=== PATIENT | female | born 1945 | race Caucasian/White ===

== ENCOUNTER 2016-08-05 23:23 | Inpatient (IN) | payer MEDICARE ==
--- NOTE | ~2016-08-05 | CN ---
Consultation Report [facility] [address] [place]. [address] NAME: DAIN ALMONTE : [birth year] STATUS : ADM IN [facility]#: [id number] AGE: 70 ADM/REG DATE : 08/06/16 MR#: [id number] REPORT SERV DATE: 08/08/16 DICTATED BY: BEV MURRAY DATE: 08/07/16 REPORT STATUS : Draft TRANSCRIBED BY: MODCarlee DATE: 08/07/16 CONSULTATION DATE OF CONSULTATION: 08/07/2016 REASON FOR CONSULTATION: Hydronephrosis. HISTORY OF PRESENT ILLNESS: Ms. Almonte is a very pleasant 70-year-old female, who is admitted to the hospital with hemoptysis. She has been transferred to the ICU after procedures to stop her bleeding. She is not doing well. When she was admitted to the hospital, she is found to have acute kidney injury with a creatinine of 1.8. A Wong catheter was placed. A CT scan was obtained which demonstrated bilateral hydronephrosis down to the level of the bladder. She endorses a history of severe pelvic organ prolapse with urinary retention. She has been doing clean, intermittent catheterization without much luck, even though her has been helping her. She follows with Dr. Mueller in [place]. She is scheduled for a prolapse repair in the near future. I have been asked to consult regarding her hydronephrosis with acute kidney injury. PAST MEDICAL HISTORY: Coronary artery disease, hypertension, diabetes, valvular heart disease, peripheral artery disease, anxiety, depression, tobacco use. SURGICAL HISTORY: CABG, mitral valve repair, maze surgery, back surgery, tonsillectomy, adenoidectomy. ALLERGIES: INTOLERANT OF STATINS. CURRENT MEDICATIONS: Reviewed and are on the chart. SOCIAL HISTORY: She smokes. She does not drink or use illegal drugs. FAMILY HISTORY: Noncontributory. REVIEW OF SYSTEMS: A 12-point review of systems was performed. Pertinent positives are listed in the HPI. PHYSICAL EXAMINATION: VITAL SIGNS: Temperature 97.9, pulse 62, blood pressure , saturating 99% on room air. GENERAL: She is in no acute distress. Appears her stated age. HEAD: Normocephalic and atraumatic. LUNGS: Breathing is nonlabored. She is not in respiratory distress. Pulse is regular in rate and rhythm. ABDOMEN: Soft, nontender, nondistended. She has no CVA tenderness. EXTREMITIES: She has no cyanosis or edema. Consultation Report [place] [address] [address] NAME: DAIN ALMONTE : [birth year] STATUS : ADM IN [facility]#: [id number] AGE: 70 ADM/REG DATE : 08/06/16 MR#: [id number] REPORT SERV DATE: 08/08/16 DICTATED BY: BEV MURRAY DATE: 08/07/16 REPORT STATUS : Draft TRANSCRIBED BY: VIKTOR DATE: 08/07/16 : Urine is clear. NEURO: She is alert and oriented x3. LABORATORY DATA: White count 7.2, hemoglobin 10.1, creatinine is 1.4. Urinalysis is negative for infection. ASSESSMENT/PLAN: 1. Bilateral hydronephrosis. 2. Cystocele. 3. Acute urinary retention. PLAN: Ms. Almonte has acute urinary retention and hydronephrosis secondary to a large cystocele, which is causing bladder outlet obstruction. She is getting better with her Wong catheter decompression and her creatinine is improving. At this point, recommend leaving the Wong catheter now and at discharge. She has already contacted Dr. Mueller in [place] to reschedule her surgery. Also, she does need to have her pelvic organ prolapse repaired, so she can restore normal voiding if possible. If intermittent catheterization easier in the future. Again, please leave the Wong catheter. Never follow up with Dr. Mueller immediately upon discharge. Thank you for this consultation. Please call if other questions arise. JOSEPH/VIKTOR Bev Murray MD / [id number] CC: Bev Murray MD
--- NOTE | ~2016-08-05 | DS ---
Discharge Summary [facility] [address] [place]. [address] NAME: DAIN LOMBARDI : 49 STATUS : DIS IN PAT#: [id number] AGE: 70 ADM/REG DATE : 08/06/16 MR#: [id number] REPORT SERV DATE: 08/11/16 DICTATED BY: PAPITO JANE DATE: 08/10/16 REPORT STATUS : Draft TRANSCRIBED BY: MODL DATE: 08/10/16 ADMISSION DATE: 08/06/2016 DISCHARGE DATE: 08/10/2016 DISCHARGE DIAGNOSES: 1. Community-acquired pneumonia. 2. Hemoptysis. 3. Bilateral hydronephrosis secondary to urinary obstruction due to cystocele, being discharged with a Wong catheter. 4. Diabetes type 2. 5. Sepsis, present on admission, now resolved. HOSPITAL COURSE: This is a 70-year-old lady who was admitted to the hospital with an initial diagnosis of community-acquired pneumonia with sepsis. For details, please refer to excellent H and P by Dr. Hitesh Land. In summary, the patient was admitted and was poorly treated for community-acquired pneumonia. The patient developed hemoptysis since admission and was seen by Pulmonology. The patient underwent a bronchoscopy on 08/07/2016. The patient was found to have a large blood clot and underwent a rigid bronchoscopy from which the patient developed severe pulmonary artery bleed. The patient ended up requiring embolization and required a couple of days stabilization in the CCU. I actually assumed care of this patient starting 08/09/2016 after patient came out of the ICU. By the time I assumed care, the patient was actually quite stable and she was not even requiring any oxygen. The patient was monitored for hemodynamic stability, especially after the significant hemoptysis and pulmonary artery bleed. The patient's hemoglobin downtrended from 10.4 down to 8.4, but remained stable there. The patient was no longer having hemoptysis and the patient was stable on room air. The patient was also seen by Pulmonology who felt that the patient was stable for discharge to home. The patient is thus being discharged home today with close outpatient followup plans. Also during this hospitalization, the patient was found to have bilateral hydronephrosis and distended bladder due to urinary outlet obstruction from cystocele. The patient was treated with a Wong catheter with improvement of urine output and renal function. The patient will need to follow up with Dr. Mueller as soon as possible upon discharge. Otherwise, the patient did not have any further complications during this hospital stay. DISCHARGE DESTINATION: Home with home health. DISCHARGE MEDICATIONS: 1. ProAir one puff inhaled q.4 hours p.r.n. 2. Anoro Ellipta inhaled daily. 3. Ghent 10/325 one tab p.o. q.8 hours p.r.n., otherwise no changes to medications. FOLLOWUP: 1. Please follow up with PCP in the next one to two weeks. 2. Please follow up with Dr. Mueller as soon as possible. Discharge Summary [address] [address] NAME: DAIN LOMBARDI : [birth year] STATUS : DIS IN [facility]#: [id number] AGE: 70 ADM/REG DATE : 08/06/16 MR#: [id number] REPORT SERV DATE: 08/11/16 DICTATED BY: PAPITO JANE DATE: 08/10/16 REPORT STATUS : Draft TRANSCRIBED BY: VIKTOR DATE: 08/10/16 3. Please follow up with Pulmonology as instructed. 4. Total of 25 minutes spent in coordinating this patient's discharge today. DICTATED BY: Papito Jane MD [facility] [place]/VIKTOR Papito Jane MD / [id number] CC: MD Dewey Chand NP
--- NOTE | ~2016-08-05 | CN ---
Consultation Report [facility] [address] [place]. [address] NAME: DAIN ALMONTE : [birth year] STATUS : ADM IN [facility]#: [id number] AGE: 70 ADM/REG DATE : 08/06/16 MR#: [id number] REPORT SERV DATE: 08/06/16 DICTATED BY: MECHE DAVID IV DATE: 08/06/16 REPORT STATUS : Draft TRANSCRIBED BY: VIKTOR DATE: 08/06/16 PULMONARY CONSULTATION DATE OF CONSULTATION: 08/06/2016 REASON FOR REQUEST: Hemoptysis. HISTORY OF PRESENT ILLNESS: History was obtained from the records and from the patient. Ms. Almonte is a 70-year-old female with a history of ongoing tobacco use, coronary artery disease, hypertension, diabetes mellitus, valvular heart disease, peripheral arterial disease, anxiety/depression, who was admitted with one week of cough and 24 hours of significant hemoptysis. The patient was in her normal state of health until about a week ago when she developed a cough that was at times loose; however, she did not expectorate to visualize the sputum. She denied any fevers, chills, sweats. She did complain of some chest congestion with intermittent wheezing. Cough seems to be worse at nighttime. She is not on bronchodilator medication nor is she on supplemental oxygen. Then, yesterday, she developed relatively large-volume hemoptysis. She had several episodes, one to include blood coming from her nose. In total, they felt that there was approximately half a cup of blood. They presented to the emergency room where a chest CT scan demonstrated a ground- glass infiltrate in the medial apical segment of the left upper lobe. She was empirically started on antibiotic therapy and admitted. She has had an episode of hemoptysis in the distant past and is unsure whether she underwent a bronchoscopy. She did not undergo lung cancer screening and chest CT scans. She had no chest trauma or other bleeding disorders. The patient reportedly snores and her has noted apneic episodes. Sleep is marginally restorative and she complains of sedentary hypersomnolence. She has never undergone evaluation for obstructive sleep apnea. PULMONARY HISTORY: Remarkable for no history of childhood asthma or known adult obstructive lung disease. She has had pneumonia in the past. She is a 64-[id number]-bnka smoker, currently smoking a pack of cigarettes a day. 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 She is up-to-date on the flu, though has not received the Prevnar-13 vaccination. PAST MEDICAL HISTORY: 1. Coronary artery disease. 2. Hypertension. 3. Diabetes mellitus. 4. Valvular heart disease. 5. Peripheral arterial disease. 6. Anxiety/depression. 7. Ongoing tobacco use. SURGERIES: Consultation Report [address] [place]. [address] NAME: DAIN ALMONTE : [birth year] STATUS : ADM IN [facility]#: [id number] AGE: 70 ADM/REG DATE : 08/06/16 MR#: [id number] REPORT SERV DATE: 08/06/16 DICTATED BY: MECHE DAVID IV DATE: 08/06/16 REPORT STATUS : Draft TRANSCRIBED BY: VIKTOR DATE: 08/06/16 1. Coronary artery bypass grafting in 2009. 2. Mitral valve repair at the same time. 3. Maze surgery at the same time. 4. Back surgery on two occasions. 5. Tonsillectomy and adenoidectomy. ALLERGIES: SHE IS INTOLERANT OF STATINS WHICH CAUSE HER LEGS TO HURT. CURRENT MEDICATIONS: Celexa 20 mg daily; Coreg 25 mg twice a day; Cymbalta 60 mg daily; Glucophage 850 mg twice a day; Mag-Ox 400 mg daily; level 1 insulin sliding scale; Protonix 40 mg twice a day, and Xanax 0.5 mg daily. SOCIAL HISTORY: Remarkable for the tobacco use as above. She denies alcohol or illicit drug use. She is and has two children. FAMILY HISTORY: Remarkable for mother with hypertension, father with colon and lung cancer, and a sister with coronary artery disease. REVIEW OF SYSTEMS: 14 systems reviewed. Pertinent positives as noted above. PHYSICAL EXAMINATION: GENERAL: This is an elderly female, in no acute distress. She is alert, awake, and oriented. VITAL SIGNS: Temperature is 97.5, pulse is 65, respiratory rate is 18, saturations are 92% on room air. Blood pressure 134/63. HEENT: Patient is normocephalic, atraumatic. Extraocular movements are intact. Pupils react to light. Sclerae and conjunctivae are normal. There is no active bleeding from either nares. She has a Mallampati 3 airway with an elongated soft palate and significant narrowing of the posterior pharyngeal space. She has a retrognathic lower jaw. No other oral lesions are noted. NECK: Without any palpable lymphadenopathy or thyromegaly. CHEST: The patient has inspiratory squeaks with inspiratory and expiratory rhonchi bilaterally and a prolonged expiratory phase. No true wheezes are noted. She has a sternotomy scar. CARDIOVASCULAR: Jugular venous pulsations appeared to be approximately 7 cm. She has 1+ carotid upstrokes. No obvious bruit. She has a distant regular S1, S2 with no clear murmur or S3. Peripheral pulses are diminished. ABDOMEN: Protuberant, soft. There are hypoactive bowel sounds. There is no palpable hepatosplenomegaly or masses. EXTREMITIES: Demonstrate no cyanosis, clubbing, edema, or palpable cords. NEUROLOGIC: Strength is 5/5 and sensation intact to light touch. LABORATORY DATA: Chest CT scan demonstrates no endobronchial lesion; no obvious mass or adenopathy. The patient does have some ground-glass infiltrate in the medial left apical Consultation Report [address] [place]. [address] NAME: DAIN ALMONTE : [birth year] STATUS : ADM IN PAT#: [id number] AGE: 70 ADM/REG DATE : 08/06/16 MR#: [id number] REPORT SERV DATE: 08/06/16 DICTATED BY: MECHE DAVID IV DATE: 08/06/16 REPORT STATUS : Draft TRANSCRIBED BY: VIKTOR DATE: 08/06/16 segment. There are some minimal areas of centrilobular and paraseptal emphysematous changes. There is some linear scarring, more in the bases. The patient has bilateral hydronephrosis. Chemistry: Sodium 141, potassium 4.4, chloride 112, bicarbonate 22. BUN 34, creatinine 1.62. Glucose of 78. Magnesium is 1.6. TSH is normal. Hemoglobin A1c is 5.6. Blood gas was pH 7.44, pCO2 of 29, pO2 of 68. CBC: Hemoglobin 10.3, hematocrit 31.6, platelet count was 249,000, and white blood cell count is 8.6. ASSESSMENT AND PLAN: 1. Respiratory. The patient has some emphysematous changes on CT scan with clinical exam consistent with a chronic obstructive pulmonary disease exacerbation. She will be given steroids, prednisone 40 mg daily for five doses. Anoro Ellipta will be started one puff daily. She will be given albuterol via nebulizer as needed for worsening symptoms. The patient currently is finishing a meal, so will not be able to undergo bronchoscopy today; however, this is ordered for tomorrow. She has symptoms consistent with obstructive sleep apnea, for which an outpatient sleep evaluation was recommended. 2. Infectious disease. The patient will continue on community-acquired pneumonia coverage with ceftriaxone and azithromycin both daily. We will provide BAL of the apical left upper lobe for culture, Prevnar-13 at the time of discharge. 3. Neurologic. Habitrol patch for tobacco dependency. I spent more than 5 minutes reviewing the adverse cardiopulmonary effects of ongoing tobacco use. 4. Renal. Ultrasound results are noted. Questionable Urology consultation. Urinalysis will be obtained. We will replace the patient's magnesium to 1 g daily. The patient does have the chronic kidney disease, which is above her baseline. 5. Hematologic. Pneumatic compression stockings for deep vein thrombosis prophylaxis. CBC tomorrow. 6. Cardiovascular. We will continue the cardiac medications. Thank you for consulting us. We will follow the patient with you. COURT/MODL Meche David IV, M.D. / [id number] CC: MD Dewey Chand NP
--- NOTE | ~2016-08-05 | EGD ---
EGD REPORT [facility] [address] [address] NAME: ELIZABETH ALMONTE : [birth year] STATUS : ADM IN PAT#: [id number] AGE: 70 ADM/REG DATE : 08/06/16 MR#: [id number] REPORT SERV DATE: 08/07/16 DICTATED BY: VALDO MEIER DATE: 08/07/16 REPORT STATUS : Draft [facility]ANSCRIBED [facility]: [facility] DATE: 08/07/16 Pulmonology Patient Name: Elizabeth Almonte Procedure Date: 08/07/2016 11:21 AM Date of : 1945 Attending MD: DORITA MEIER MD Procedure Date No Time: 08/07/2016 Procedure: Flexible rigid bronchoscopy Indications: Hemoptysis with abnormal CXR Providers: DORITA MEIER MD Referring MD: MECHE HIRSCH IV Medicines: Lidocaine 2% 20 mL Complications: No immediate complications Procedure: Pre-Anesthesia Assessment: - A History and Physical has been performed. Patient meds and allergies have been reviewed. The risks and benefits of the procedure and the sedation options and risks were discussed with the patient. All questions were answered and informed consent was obtained. Patient identification and proposed procedure were verified prior to the procedure by the physician and the nurse in the pre-procedure area in the procedure room. Mental Status Examination: alert and oriented. Airway Examination: normal oropharyngeal airway. Respiratory Examination: poor air movement. CV Examination: RRR, no murmurs, no S3 or S4. ASA Grade Assessment: IV - A patient with severe systemic disease that is a constant threat to life. After reviewing the risks and benefits, the patient was deemed in satisfactory condition to undergo the procedure. The anesthesia plan was to use general anesthesia. Immediately prior to administration of medications, the patient was re-assessed for adequacy to receive sedatives. The heart rate, respiratory rate, oxygen saturations, blood pressure, adequacy of pulmonary ventilation, and response to care were monitored throughout the procedure. The physical status of the patient was re-assessed after the procedure. Findings: The endotracheal tube is in good position. The visualized portion of the trachea is of normal caliber. The yusra is sharp. The tracheobronchial tree was examined to at least the first subsegmental level. Large occlusive blood clot in the left main stem. After inspection, the patient was then reintubated with a flexible rigid 12 mm bronchoscope in the usual atraumatic fashion and advanced selectively into the left mainstem. Using a nettie balloon number 5 the EGD REPORT [address] [address] NAME: ELIZABETH ALMONTE : [birth year] STATUS : ADM IN PAT#: [id number] AGE: 70 ADM/REG DATE : 08/06/16 MR#: [id number] REPORT SERV DATE: 08/07/16 DICTATED BY: VALDO MEIER DATE: 08/07/16 REPORT STATUS : Draft TRANSCRIBED BY: [facility] DATE: 08/07/16 clot was dislodged from the left mainstem using balloon bronchoplasty. The occlussive LMS clot was then aspirated. Bronchoalveolar lavage was performed in the ALONA apical posterior segments (B1 \T\ B2) of the lung and sent for cell count, cytology, bacterial culture, viral smears \T\ culture, and fungal and AFB analysis. 120 mL of fluid were instilled. 40 mL were returned. The return was bloody. The ALONA was wedged and 20 ccs of epinephrine 1:[id number] was instilled followed by balloon tamoponade with a Nettie #4. Patient was then reintubated with an ETT over a bogie in preparation for angiography and potential emobolization of the ALONA apical medial subsegment. Slight oozing was noted in the ALONA which remained stable at the end of the procedure. Impression: Therapeutic aspiration of large ALONA occlusive clot. Bleeding emanating from ALONA apical medial subsegment Recommendation: - Await test results. - Chest X-ray. - Patient to be transported to [facility]. DORITA MEIER MD 08/07/2016 11:40 AM This report has been signed electronically. Number of Addenda: 0 Note Initiated On: 08/07/2016 11:21 AM [address] [address]
--- NOTE | ~2016-08-05 | OP ---
Record Of Operation [facility] [address] [place]. [address] NAME: DAIN LOMBARDI : [birth year] STATUS : ADM IN [facility]#: [id number] AGE: 70 ADM/REG DATE : 08/06/16 MR#: [id number] REPORT SERV DATE: 08/07/16 DICTATED BY: MECHE DAVID IV DAN DATE: 08/07/16 REPORT STATUS : Draft TRANSCRIBED BY: VIKTOR DATE: 08/07/16 DATE OF PROCEDURE: 08/07/2016 PREOPERATIVE DIAGNOSIS: Hemoptysis. POSTOPERATIVE DIAGNOSIS: Bleeding apparent from the left lung, most likely upper lobe with a large adherent clot, which was not removed for which the patient proceeded to rigid bronchoscopy following this procedure. INDICATIONS: Significant hemoptysis with ground-glass density in the medial left upper lobe. CONTRAINDICATIONS: None. CONSENT: The risks, benefits, and alternative evaluations were discussed with the patient and her . Possible complications reviewed to include worsening bleeding, infection, low oxygen level, air leak around the lung, and even potentially . The patient agreed to the procedure with the consent signed and witnessed on the front of the chart. PREOPERATIVE LABS: The patient's INR was 1.1, PTT is 29.4, platelet count was 253,000. ANIMAL CARE GIVER: Meche David M.D. METHOD: The patient was taken to the bronchoscopy suite at [facility] and prepared in the usual manner. Anesthesiology was consulted to provide airway management as well as sedation. This was provided via an OxyMask with propofol. Once the patient was sedated, I attempted advancement of the bronchoscope through the nares; however, they were very tight. A bite block was placed and the bronchoscope was advanced into the posterior pharyngeal space. Vocal cords could be visualized. A total of 20 mL of 2% lidocaine solution was used to anesthetize the vocal cords as well as the airways. There was blood in the posterior pharyngeal space, which was removed with suction. The vocal cords moved appropriately with phonation and with respiratory effort. Once the patient was well sedated, the bronchoscope was advanced through the vocal cords without difficulty. There was blood staining through all of the airways. On the right, there was normal anatomy with all airways patent out beyond the fourth generation bronchi. Saline lavage was used to remove the blood from these airways. There was no evidence for active bleeding. All areas were patent out beyond the fourth generation bronchi. On the left, there was a large adherent clot, completely obstructing the distal left mainstem bronchus. Using saline lavage, the scope could be advanced into the lower lobe with what appeared to be a finger extension of clot into the left lower lobe. The left upper lobe airways could not be examined. There was no evidence for active bleeding. Because of the large amount of hemoptysis as the patient presented and the large clot, it was not attempted to be removed at this time, and we proceeded onto rigid bronchoscopy with dictation to be performed by Dr. Boyd. There was no blood loss for this portion of the procedure. The patient tolerated the procedure well. The bronchoscope was removed and the patient awoke without difficulty. She was later intubated for the rigid bronchoscopy. No specimen was obtained from this procedure; however, a BAL was obtained in the left upper lobe once the clot was removed during the rigid procedure. Record Of Operation [address] [place]. [address] NAME: DAIN LOMBARDI : [birth year] STATUS : ADM IN [facility]#: [id number] AGE: 70 ADM/REG DATE : 08/06/16 MR#: [id number] REPORT SERV DATE: 08/07/16 DICTATED BY: MECHE DAVID IV DATE: 08/07/16 REPORT STATUS : Draft TRANSCRIBED BY: VIKTOR DATE: 08/07/16 COURT/VIKTOR Meche David IV, M.D. / [id number] CC: MD Dewey Suarez NP
--- NOTE | ~2016-08-05 | HP ---
History And Physical [place] [id number] [facility] [place]. [address] NAME: DAIN LOMBARDI : 49 STATUS : ADM IN [facility]#: [id number] AGE: 70 ADM/REG DATE : 08/06/16 MR#: [id number] REPORT SERV DATE: 08/06/16 DICTATED BY: MIKI CARPENTER DATE: 08/06/16 REPORT STATUS : Draft TRANSCRIBED BY: MODL DATE: 08/06/16 DATE OF ADMISSION: 08/06/2016 CHIEF COMPLAINT: A 70-year-old female presenting with hemoptysis. HISTORY OF PRESENT ILLNESS: The patient states that about a week ago she developed a "cold." She has been having a cough that is productive but she tends to swallow her sputum. But it was not until the night leading up to admission about 5:30, she felt an urge to cough, and this time, coughed up a large amount of blood. She tried not to cough through the rest of the evening, but then before coming to the emergency department felt she had significant sputum to cough up and again coughed up large clots of blood without any other real discoloration other than blood in it. There has been no shortness of breath with this. The patient has had pleuritic like chest discomfort in her left upper lung. It is exacerbated by coughing, a sharp quality of 4 to 6/10 severity. No fevers or chills. She has had some lightheadedness and some slight headache. No nausea or vomiting. No abdominal pain. No sore throat. The patient occasionally takes Goody's Powder for headaches. REVIEW OF SYSTEMS: Otherwise, a 14-point review of systems was obtained and was negative. PAST MEDICAL HISTORY: 1. Coronary artery disease, status post CABG, seen by Dr. Bowser. 2. Mitral valve repair. 3. Diabetes. 4. Chronic pain management for chronic back pain, on hydrocodone. 5. Anxiety and depression, on chronic Xanax. 6. Endometriosis. 7. Hypertension. 8. Neuropathy. 9. Stroke in 2015 with perhaps a mild gait deficit. 10.Hemoptysis in 1999 with bronchoscopy. 11.The post CABG E. coli sepsis. 12.Uterine prolapse with chronic urinary retention and intermittent catheterization. PAST SURGICAL HISTORY: 1. CABG in 2009. 2. Mitral valve repair. 3. Back surgery x2. 4. Maze procedure. History And Physical [facility] [address] [place]. [address] NAME: DAIN LOMBARDI : [birth year] STATUS : ADM IN [facility]#: [id number] AGE: 70 ADM/REG DATE : 08/06/16 MR#: [id number] REPORT SERV DATE: 08/06/16 DICTATED BY: MIKI CARPENTER DATE: 08/06/16 REPORT STATUS : Draft TRANSCRIBED BY: VIKTOR DATE: 08/06/16 ALLERGIES: STATINS. SOCIAL HISTORY: The patient continues to smoke. Does not drink alcohol. Is . Lives in [place], [place]. Has two sons. FAMILY HISTORY: Sister with coronary artery disease. Father with lung cancer. CURRENT MEDICATIONS: Include Xanax 0.5 mg p.o. daily as needed, aspirin 81 mg p.o. daily, Coreg 25 mg p.o. b.i.d., vitamin D, Celexa 20 mg p.o. daily, Cymbalta 60 mg p.o. daily, hydrocodone 10/325 every 8 hours p.r.n., magnesium 400 mg p.o. daily, metformin 850 mg p.o. b.i.d., Prilosec 20 mg p.o. b.i.d., and Trulance 3 mg p.o. daily. PHYSICAL EXAMINATION: VITAL SIGNS: Temperature 97.6, pulse 71, blood pressure 137/65, respiratory rate 22, and O2 saturation 94% on room air. GENERAL: A pleasant, cooperative female, not in any particular distress at this time. HEENT: Pupils equal, round, and reactive to light. No conjunctival pallor. No scleral icterus. Nares are patent. Oropharynx is clear of obstruction. Moist mucous membranes. NECK: Trachea midline. No thyromegaly. LYMPH: No cervical lymphadenopathy. No supraclavicular lymphadenopathy. RESPIRATORY: The patient does have scattered rhonchi on exam. No focal egophony. No wheezes. The patient has a labored respiratory effort. CARDIOVASCULAR: Regular rate and rhythm. No murmurs, rubs, or gallops. No extremity edema is appreciated. ABDOMEN: Soft, nontender, nondistended. Normal bowel sounds auscultated throughout. No hepatosplenomegaly. DERMATOLOGICAL: Warm and dry extremities. No pallor. No cyanosis. PSYCHIATRIC: Normal affect. Good mood. Alert and oriented x3. LABORATORY DATA: White blood cell count 12.2, hemoglobin 10, hematocrit 32, and platelets 268. Sodium 141, potassium 4.7, chloride 111, bicarb 24, BUN 38, creatinine 1.88 from baseline creatinine of 1.1, and glucose 76. STUDIES: 1. CT scan of the chest shows a left upper lung pneumonia. There is also incompletely imaged bilateral hydronephrosis. 2. EKG by my own evaluation shows sinus rhythm, right bundle-branch block. ASSESSMENT AND PLAN: 1. Sepsis with community-acquired pneumonia. White blood cell count of 12.2. Tachypnea. Check blood cultures. Check lactic acid. Place on IV antibiotics. 2. Hemoptysis. Obtain a pulmonary consult for bronchoscopy. Hold aspirin. Hold Goody's powder. 3. Urinary retention. Continue intermittent catheterization. Check an ultrasound of the kidneys for further definition of hydronephrosis. History And Physical [address] [address] NAME: DAIN LOMBARDI : [birth year] STATUS : ADM IN [facility]#: [id number] AGE: 70 ADM/REG DATE : 08/06/16 MR#: [id number] REPORT SERV DATE: 08/06/16 DICTATED BY: MIKI CARPENTER DATE: 08/06/16 REPORT STATUS : Draft TRANSCRIBED BY: VIKTOR DATE: 08/06/16 4. Diabetes. Check hemoglobin A1c. Continue sliding scale insulin and home medications. MATT/VIKTOR Miki Carpenter M.D. / [id number] CC: MD Dewey Chand NP
[~2016-08-05 23:23] MED LIST: ACTOPLUS M15 MG/850 PO; AFRIN15 NAS; ALBUTEROL5 INH; AMBIEN CR6.25 MG PO; ASAB PO; BACDS PO; BC POWDER PO; BUM1 PO; CEFT5 PO; COREG PO; COREG12 PO; COREG25 PO; CYMBALTA PO; CYMBALTA30 PO; CYMBALTA60 PO; D.O.S.100 MG PO; DIL4TAB PO; ENDOCET1 TAB PO; GLUCPH8 PO; GOODY'S BODY P1 EACH PO; GOODY'S EX-STR1 EAC1 PO; HALF81 PO; KDUR20 PO; KLONO1 PO; KLONO5 PO; LIDODERM TOP; LORTAB10 PO; LOVAZA1 GM PO; MELATONIN CR3 MG PO; METFORMIN PO; METHOC500B PO; MSCONT15 PO; MSCONTIN PO; NEUR300 PO; NEXIUM40 PO; NICODERM C21 MG/241 TOP; NORCO1 TA1 PO; NORCO1 TAB PO; NOVOLOG SC; OMEGA 3550 MG PO; PAXIL40 MG PO; PCET PO; PERCOCET1 TA4 PO; PRILO PO; PRILOSEC40 MG PO; PROMEGA PO; SENTAB PO; SODBICAR10 PO; T PO; TRAZ50 PO; UTI ANTIBIOTIC PO; VICODIN HP1 TAB PO; VITAMIN D2000 UNIT PO; X25 PO; X5 PO; [UNRECOGNIZED DRUG - REMARK] PO
[2016-08-06 00:09] LABS: BASOPHILS 0.5 %; BASOPHILS ABSOLUTE 0.06 10/3/uL (0.0-0.16); EOSINOPHILS ABSOLUTE 0.24 10/3/uL (0.0-0.53); HEMATOCRIT 32.2 % (36.0-48.0); HEMOGLOBIN 10.4 g/dL (12.0-16.0); IMMATURE GRANULOCYTES 0.3 %; IMMATURE GRANULOCYTES ABSOLUTE 0.04 10/3/uL (0.0-0.11); LYMPHOCYTES ABSOLUTE 4.16 10/3/uL (0.67-4.30); MANUAL DIFF NO %; MEAN CORPUS HGB CONC 32.3 g/dL (32.0-36.0); MEAN CORPUSCULAR HEMOGLOB 29.3 pg (26.0-34.0); MEAN CORPUSCULAR VOLUME 90.7 fL (80-100); MEAN PLATELET VOLUME 9.6 fL (9.2-13.0); MONOCYTES 8.6 %; MONOCYTES ABSOLUTE 1.05 10/3/uL (0.21-1.20); NEUTROPHILS 54.6 %; NEUTROPHILS ABSOLUTE 6.69 10/3/uL (2.02-8.40); PLATELET COUNT 268 10/3/uL (150-400); RBC DISTRIBUTION WIDTH 17.4 % (12.0-16.0); RED CELL COUNT 3.55 10/6/uL (4.0-5.6); WHITE BLOOD CELLS 12.2 10/3/uL (4.5-10.5)
[2016-08-06 00:15] LABS: PROTIME (NOT ORD) 13.3 SEC (12.0-14.5)
[2016-08-06 00:16] LABS: PARTIAL THROMBO TIME 28.1 SEC (22.5-37.2)
[2016-08-06 00:27] LABS: A/G RATIO 0.8 (0.7-1.9); ALBUMIN 3.3 G/DL (3.5-5.0); CALCIUM, SERUM 9.1 MG/DL (8.5-10.4); CHLORIDE, SERUM 111 MMOL/L (96-112); CO2 (CARBON DIOXIDE) 24 MMOL/L (24-34); GLOBULIN 3.9 G/DL (2.5-4.1); GLUCOSE, SERUM 76 MG/DL (60-99); SGOT(AST) 18 U/L (5-40); SGPT(ALT) 15 U/L (5-65); SODIUM, SERUM 141 MMOL/L (135-148); TOTAL BILIRUBIN 0.3 MG/DL (0-1.2); TOTAL PROTEIN 7.2 G/DL (6.0-8.5)
[2016-08-06 00:31] LABS: ALKALINE PHOSPHATASE 101 U/L (45-117); BUN (BLOOD UREA NITROGEN) 39 MG/DL (6-23); CREATININE 1.88 MG/DL (0.55-1.02); GFR AFRICAN AMERICAN 31 ML/MIN (>=60); GFR NON AFRICAN AMERICAN 27 ML/MIN (>=60); POTASSIUM, SERUM 4.7 MMOL/L (3.5-5.3)
[2016-08-06] MEDS ORDERED: GLUCPH8 PO (01:36)
[2016-08-06] MEDS ORDERED: CYMBALTA60 PO (01:36)
[2016-08-06] MEDS ORDERED: TRULANCE 3MG PO (01:36)
[2016-08-06] MEDS ORDERED: X5 PO (01:37)
[2016-08-06] MEDS ORDERED: CELEXA20 PO (01:37)
[2016-08-06] MEDS ORDERED: PRILO PO (01:37)
[2016-08-06] MEDS ORDERED: COREG25 PO (01:37)
[2016-08-06] MEDS ORDERED: ASAB PO (01:38)
[2016-08-06] MEDS ORDERED: MAGOX4 PO (01:38)
[2016-08-06] MEDS ORDERED: VITAMIN D31000 UNIT PO (01:38)
[2016-08-06] MEDS ORDERED: NORCO1 TAB PO (01:38)
[2016-08-06 06:23] LABS: BE (BASE EXCESS) -3.5 MEQ/L (0 +/- 2.5); HCO3 (ACTUAL BICARBONATE) 19.2 MEQ/L (23-27); INSTRUMENT SERIAL # 8087; PCO2 (CO2 TENSION) 29 MMHG (35-45); PO2 (O2 TENSION) 68 MMHG (79-93); SAMPLE Arterial; pH 7.44 (7.37-7.43)
[2016-08-06 08:38] LABS: HEMATOCRIT 31.6 % (36.0-48.0); HEMOGLOBIN 10.3 g/dL (12.0-16.0); MANUAL DIFF YES %; MEAN CORPUS HGB CONC 32.6 g/dL (32.0-36.0); MEAN CORPUSCULAR HEMOGLOB 29.5 pg (26.0-34.0); MEAN CORPUSCULAR VOLUME 90.5 fL (80-100); MEAN PLATELET VOLUME 9.3 fL (9.2-13.0); PLATELET COUNT 249 10/3/uL (150-400); RBC DISTRIBUTION WIDTH 17.5 % (12.0-16.0); RED CELL COUNT 3.49 10/6/uL (4.0-5.6); WHITE BLOOD CELLS 8.6 10/3/uL (4.5-10.5)
[2016-08-06 08:41] LABS: INTERNATIONAL NORMAL RATI 1.1 UNITS (-); PROTIME (NOT ORD) 14.1 SEC (12.0-14.5)
[2016-08-06 08:42] LABS: PARTIAL THROMBO TIME 29.4 SEC (22.5-37.2)
[2016-08-06 08:57] LABS: A/G RATIO 0.8 (0.7-1.9); ALBUMIN 3.1 G/DL (3.5-5.0); ALKALINE PHOSPHATASE 97 U/L (45-117); BUN (BLOOD UREA NITROGEN) 34 MG/DL (6-23); CALCIUM, SERUM 9.1 MG/DL (8.5-10.4); CHLORIDE, SERUM 112 MMOL/L (96-112); CO2 (CARBON DIOXIDE) 22 MMOL/L (24-34); CREATININE 1.62 MG/DL (0.55-1.02); GFR AFRICAN AMERICAN 37 ML/MIN (>=60); GFR NON AFRICAN AMERICAN 32 ML/MIN (>=60); GLOBULIN 3.7 G/DL (2.5-4.1); GLUCOSE, SERUM 78 MG/DL (60-99); POTASSIUM, SERUM 4.4 MMOL/L (3.5-5.3); SGOT(AST) 17 U/L (5-40); SGPT(ALT) 15 U/L (5-65); SODIUM, SERUM 141 MMOL/L (135-148); TOTAL BILIRUBIN 0.3 MG/DL (0-1.2); TOTAL PROTEIN 6.8 G/DL (6.0-8.5)
[2016-08-06 09:37] LABS: ANISOCYTOSIS 1+ (5-10/OIF) (0-5/OIF); LYMPHOCYTES 47 %; LYMPHOCYTES ABSOLUTE (CALC) 4.04 10/3/uL (0.67-4.30); MONOCYTES 7 %; NEUTROPHILS ABSOLUTE (CALC) 3.96 10/3/uL (2.02-8.40); PLATELET ESTIMATE ADQ (ADEQUATE); SEGMENTED NEUTROPHIL (0) 46 %; TOTAL NUCLEATED CELLS 100
[2016-08-06 17:45] LABS: ASCORBIC ACID (UR NOT ORDER) 20 (NEG); BILIRUBIN, URINE NEGATIVE (NEG); KETONE, URINE NEGATIVE (NEG); LEUKOCYTE ESTERASE(NOT OR TRACE (NEG); WBC (NOT ORDERED) (RFLEX) 2 (0-5)
[2016-08-06 20:53] LABS: PHOSPHORUS, SERUM 3.1 MG/DL (2.5-4.5)
[2016-08-06 21:32] LABS: PROCALCITONIN <0.05 ng/mL (<0.5)
[2016-08-07 06:54] LABS: BASOPHILS 0.1 %; BASOPHILS ABSOLUTE 0.01 10/3/uL (0.0-0.16); EOSINOPHILS 0 %; HEMATOCRIT 30.9 % (36.0-48.0); HEMOGLOBIN 10.1 g/dL (12.0-16.0); IMMATURE GRANULOCYTES 0.3 %; IMMATURE GRANULOCYTES ABSOLUTE 0.02 10/3/uL (0.0-0.11); LYMPHOCYTES 33.5 %; LYMPHOCYTES ABSOLUTE 2.42 10/3/uL (0.67-4.30); MEAN CORPUS HGB CONC 32.7 g/dL (32.0-36.0); MEAN CORPUSCULAR HEMOGLOB 29.3 pg (26.0-34.0); MEAN CORPUSCULAR VOLUME 89.6 fL (80-100); MEAN PLATELET VOLUME 9.2 fL (9.2-13.0); MONOCYTES 5.3 %; MONOCYTES ABSOLUTE 0.38 10/3/uL (0.21-1.20); NEUTROPHILS 60.8 %; PLATELET COUNT 253 10/3/uL (150-400); RBC DISTRIBUTION WIDTH 17.1 % (12.0-16.0); RED CELL COUNT 3.45 10/6/uL (4.0-5.6); WHITE BLOOD CELLS 7.2 10/3/uL (4.5-10.5)
[2016-08-07 06:55] LABS: MANUAL DIFF NO %
[2016-08-07 07:07] LABS: ALBUMIN 3.3 G/DL (3.5-5.0); BUN (BLOOD UREA NITROGEN) 24 MG/DL (6-23); CALCIUM, SERUM 9.6 MG/DL (8.5-10.4); CHLORIDE, SERUM 111 MMOL/L (96-112); CO2 (CARBON DIOXIDE) 21 MMOL/L (24-34); GFR AFRICAN AMERICAN 45 ML/MIN (>=60); GFR NON AFRICAN AMERICAN 39 ML/MIN (>=60); GLUCOSE, SERUM 123 MG/DL (60-99); PHOSPHORUS, SERUM 3.2 MG/DL (2.5-4.5); SODIUM, SERUM 141 MMOL/L (135-148)
[2016-08-08 08:13] LABS: BASOPHILS 0.1 %; BASOPHILS ABSOLUTE 0.01 10/3/uL (0.0-0.16); EOSINOPHILS 0 %; HEMATOCRIT 28.6 % (36.0-48.0); HEMOGLOBIN 9.4 g/dL (12.0-16.0); IMMATURE GRANULOCYTES 0.3 %; IMMATURE GRANULOCYTES ABSOLUTE 0.04 10/3/uL (0.0-0.11); LYMPHOCYTES 22.9 %; LYMPHOCYTES ABSOLUTE 3.28 10/3/uL (0.67-4.30); MEAN CORPUS HGB CONC 32.9 g/dL (32.0-36.0); MEAN CORPUSCULAR HEMOGLOB 29.7 pg (26.0-34.0); MEAN CORPUSCULAR VOLUME 90.5 fL (80-100); MEAN PLATELET VOLUME 9.1 fL (9.2-13.0); MONOCYTES 8.3 %; MONOCYTES ABSOLUTE 1.19 10/3/uL (0.21-1.20); NEUTROPHILS 68.4 %; NEUTROPHILS ABSOLUTE 9.83 10/3/uL (2.02-8.40); PLATELET COUNT 251 10/3/uL (150-400); RBC DISTRIBUTION WIDTH 17.6 % (12.0-16.0); RED CELL COUNT 3.16 10/6/uL (4.0-5.6)
[2016-08-08 08:14] LABS: MANUAL DIFF NO %; WHITE BLOOD CELLS 14.4 10/3/uL (4.5-10.5)
[2016-08-08 08:27] LABS: BUN (BLOOD UREA NITROGEN) 27 MG/DL (6-23); CALCIUM, SERUM 8.9 MG/DL (8.5-10.4); CHLORIDE, SERUM 109 MMOL/L (96-112); CO2 (CARBON DIOXIDE) 24 MMOL/L (24-34); CREATININE 1.59 MG/DL (0.55-1.02); GFR AFRICAN AMERICAN 38 ML/MIN (>=60); GFR NON AFRICAN AMERICAN 33 ML/MIN (>=60); POTASSIUM, SERUM 4.4 MMOL/L (3.5-5.3); SODIUM, SERUM 138 MMOL/L (135-148)
[2016-08-08 08:28] LABS: GLUCOSE, SERUM 88 MG/DL (60-99)
[2016-08-09 05:04] LABS: BASOPHILS 0.2 %; BASOPHILS ABSOLUTE 0.02 10/3/uL (0.0-0.16); EOSINOPHILS 0 %; HEMATOCRIT 26.2 % (36.0-48.0); HEMOGLOBIN 8.6 g/dL (12.0-16.0); IMMATURE GRANULOCYTES 0.2 %; IMMATURE GRANULOCYTES ABSOLUTE 0.03 10/3/uL (0.0-0.11); LYMPHOCYTES 24.3 %; LYMPHOCYTES ABSOLUTE 3.09 10/3/uL (0.67-4.30); MEAN CORPUS HGB CONC 32.8 g/dL (32.0-36.0); MEAN CORPUSCULAR HEMOGLOB 29.8 pg (26.0-34.0); MEAN CORPUSCULAR VOLUME 90.7 fL (80-100); MEAN PLATELET VOLUME 9.1 fL (9.2-13.0); MONOCYTES 7.3 %; MONOCYTES ABSOLUTE 0.93 10/3/uL (0.21-1.20); NEUTROPHILS ABSOLUTE 8.62 10/3/uL (2.02-8.40); PLATELET COUNT 243 10/3/uL (150-400); RBC DISTRIBUTION WIDTH 17.8 % (12.0-16.0); RED CELL COUNT 2.89 10/6/uL (4.0-5.6); WHITE BLOOD CELLS 12.7 10/3/uL (4.5-10.5)
[2016-08-09 05:09] LABS: MANUAL DIFF NO %
[2016-08-09 05:22] LABS: CALCIUM, SERUM 8.6 MG/DL (8.5-10.4); CHLORIDE, SERUM 109 MMOL/L (96-112); CO2 (CARBON DIOXIDE) 23 MMOL/L (24-34); GFR AFRICAN AMERICAN 45 ML/MIN (>=60); GFR NON AFRICAN AMERICAN 39 ML/MIN (>=60); PHOSPHORUS, SERUM 2.7 MG/DL (2.5-4.5); POTASSIUM, SERUM 4.2 MMOL/L (3.5-5.3); SODIUM, SERUM 139 MMOL/L (135-148)
[2016-08-09 05:24] LABS: BUN (BLOOD UREA NITROGEN) 31 MG/DL (6-23); GLUCOSE, SERUM 141 MG/DL (60-99)
[2016-08-10 04:43] LABS: BASOPHILS 0.1 %; BASOPHILS ABSOLUTE 0.01 10/3/uL (0.0-0.16); EOSINOPHILS 0 %; HEMATOCRIT 26.1 % (36.0-48.0); HEMOGLOBIN 8.4 g/dL (12.0-16.0); IMMATURE GRANULOCYTES 0.4 %; IMMATURE GRANULOCYTES ABSOLUTE 0.05 10/3/uL (0.0-0.11); LYMPHOCYTES 32.6 %; LYMPHOCYTES ABSOLUTE 4.13 10/3/uL (0.67-4.30); MEAN CORPUS HGB CONC 32.2 g/dL (32.0-36.0); MEAN CORPUSCULAR HEMOGLOB 29.7 pg (26.0-34.0); MEAN CORPUSCULAR VOLUME 92.2 fL (80-100); MEAN PLATELET VOLUME 9.7 fL (9.2-13.0); MONOCYTES 9.3 %; MONOCYTES ABSOLUTE 1.18 10/3/uL (0.21-1.20); NEUTROPHILS 57.6 %; NEUTROPHILS ABSOLUTE 7.29 10/3/uL (2.02-8.40); PLATELET COUNT 251 10/3/uL (150-400); RBC DISTRIBUTION WIDTH 17.7 % (12.0-16.0); RED CELL COUNT 2.83 10/6/uL (4.0-5.6); WHITE BLOOD CELLS 12.7 10/3/uL (4.5-10.5)
[2016-08-10 04:49] LABS: BUN (BLOOD UREA NITROGEN) 32 MG/DL (6-23); CHLORIDE, SERUM 109 MMOL/L (96-112); CO2 (CARBON DIOXIDE) 24 MMOL/L (24-34); CREATININE 1.29 MG/DL (0.55-1.02); GFR AFRICAN AMERICAN 49 ML/MIN (>=60); GFR NON AFRICAN AMERICAN 43 ML/MIN (>=60); GLUCOSE, SERUM 141 MG/DL (60-99); POTASSIUM, SERUM 4.4 MMOL/L (3.5-5.3); SODIUM, SERUM 142 MMOL/L (135-148)
[2016-08-10 04:50] LABS: MANUAL DIFF NO %
[2016-08-10] MEDS ORDERED: ANOROELLIPTA INH (13:32)
[2016-08-10] MEDS ORDERED: PROAIR HFA INH (13:33)
== END 2016-08-10 14:26 | disposition home health service (06) | DRG 853 ==
LOC: ER 23:23 → 6NO 08-06 01:26 → CCU 08-07 12:20 → 6NO 08-08 13:14
PROVIDERS: Hospitalist; Internal Medicine; Internal Medicine Critical Care Medicine; Nurse Practitioner Acute Care
PROC: 03LY3DZ Occlusion of Upper Artery with Intraluminal Device, Percutaneous Approach (ICD-10-PCS; 2016-08-07)
PROC: 0B988ZX Drainage of Left Upper Lobe Bronchus, Via Natural or Artificial Opening Endoscopic, Diagnostic (ICD-10-PCS; 2016-08-07)
PROC: 3E1F88Z Irrigation of Respiratory Tract using Irrigating Substance, Via Natural or Artificial Opening Endoscopic (ICD-10-PCS; 2016-08-07)
PROC: 3E0F8GC Introduction of Other Therapeutic Substance into Respiratory Tract, Via Natural or Artificial Opening Endoscopic (ICD-10-PCS; 2016-08-07)
PROC: B31L1ZZ Fluoroscopy of Intercostal and Bronchial Arteries using Low Osmolar Contrast (ICD-10-PCS; 2016-08-07)
PROC: 0B7 Respiratory System, Dilation (ICD-10-PCS; principal; 2016-08-07 08:04)
PROC: 0B988ZZ Drainage of Left Upper Lobe Bronchus, Via Natural or Artificial Opening Endoscopic (ICD-10-PCS; 2016-08-07 08:04)
DX: A41.9 Sepsis, unspecified organism (principal); J18.9 Pneumonia, unspecified organism; N17.9 Acute kidney failure, unspecified; E11.42 Type 2 diabetes mellitus with diabetic polyneuropathy; E11.22 Type 2 diabetes mellitus with diabetic chronic kidney disease; N18.3 Chronic kidney disease, stage 3 (moderate); N13.30 Unspecified hydronephrosis; R04.2 Hemoptysis; N13.8 Other obstructive and reflux uropathy; M54.89 Other dorsalgia; F41.9 Anxiety disorder, unspecified; F32.9 Major depressive disorder, single episode, unspecified; I25.10 Atherosclerotic heart disease of native coronary artery without angina pectoris; R33.9 Retention of urine, unspecified; N81.10 Cystocele, unspecified; N81.4 Uterovaginal prolapse, unspecified; F17.210 Nicotine dependence, cigarettes, uncomplicated; I73.9 Peripheral vascular disease, unspecified; I69.398 Other sequelae of cerebral infarction; R26.9 Unspecified abnormalities of gait and mobility; Z79.891 Long term (current) use of opiate analgesic; Z95.5 Presence of coronary angioplasty implant and graft; Z95.1 Presence of aortocoronary bypass graft; Z87.01 Personal history of pneumonia (recurrent)
CPT/HCPCS: 36216; 36415; 36600; 37244; 71010; 71250; 74176; 75726; 76775; 80048; 80053; 80069; 81001; 82805; 82962; 83036; 83605; 83735; 84100; 84145; 84443; 85025; 85610; 85730; 86850; 86900; 86901; 87015; 87040; 87070; 87102; 87116; 87205; 87449; 88112; 90670; 93005; 94640; 97161-GP; 99285; A9270-GY; C1757; C1769; C1884; C1894; G0009; G8978-CK-GP; G8979-CH-GP; J0330; J0456; J1170; J2250; J2405; J2710; J3010; J3475; Q9967